=== PATIENT | female | born 1945 | race Two or more races ===

== ENCOUNTER 2024-04-04 06:08 | Day surgery (SDC) | payer MEDICARE, OTHER, SELFPAY ==
[2024-04-04 08:35] VITALS: BMI 37.0
[2024-04-04 08:37] VITALS: BP 124/72; BMI 37.0
[2024-04-04 09:39] VITALS: BP 95/44
[2024-04-04 09:45] VITALS: BP 100/59
[2024-04-04 10:00] VITALS: BP 119/58
== END 2024-04-04 10:14 | disposition home or self-care (01) ==
LOC: SDS 06:08
PROVIDERS: ATTENDING PHYSICIAN Internal Medicine Gastroenterology
DX: Z12.11 Encounter for screening for malignant neoplasm of colon (principal); D12.7 Benign neoplasm of rectosigmoid junction; K57.30 Diverticulosis of large intestine without perforation or abscess without bleeding; K64.8 Other hemorrhoids; Z86.0100 Personal history of colon polyps, unspecified
CPT/HCPCS: 45385; 88305